=== PATIENT | female | born 1960 | race Caucasian/White ===

== ENCOUNTER → 2017-04-27 | Outpatient (CLI) | payer OTHER ==
[2016-07-20 10:38] VITALS: BP 103/61
--- NOTE | 2017-04-27 16:33 | MRI ---
MRI left elbow without contrast Indication: Left elbow pain and swelling Technique: Multiplanar, multi sequence imaging of the left elbow without IV contrast administration. Findings: The capitellum demonstrates bone marrow edema within the posterior lateral articular surfac e with suspected small osteochondral body noted adjacent to the capitellum on image 9, series 901. On the axial sequences there is erosion versus posttraumatic deformity within the capitellum. Small silvio unt of fluid is no within the elbow joint. There is very mild edema within the adjacent anconeus musc le. Median nerve is normal in signal and position. The radial head demonstrates no marrow signal abnormality or malpositioning. The adjacent lateral uln ar collateral ligament is intact. The annular ligament appears intact. The common extensor tendon dem onstrates no abnormal signal. The ulnar collateral ligament and common flexor tendons are normal. The biceps, brachialis and triceps muscles and tendons are normal. Impression: 1.Moderate cortical irregularity with subchondral marrow edema within the posterolateral capitellum w ith questionable small ossific densities noted adjacent to the capitellum suggests sequela of remote injury with secondary osteoarthrosis. However given the reported history of recent soft tissue swelli ng and warmth along with the cortical irregularity of the capitellum clinical correlation for gout ar thropathy is recommended. 2. Low-grade strain of the anconeus muscle. Reported By:
== END | disposition home or self-care (01) ==
LOC: RAD 09:52
PROVIDERS: ATTEND Internal Medicine
DX: M25.522 Pain in left elbow (principal); S56.812A Strain of other muscles, fascia and tendons at forearm level, left arm, initial encounter; X58.XXXA Exposure to other specified factors, initial encounter; R60.0 Localized edema
CPT/HCPCS: 73221

== ENCOUNTER 2017-10-26 19:53 | Emergency (ER) | payer OTHER ==
[2017-10-26 20:02] VITALS: BMI 24.7
--- NOTE | 2017-10-26 20:24 | DR.GENAD ---
HPI - PCP Primary Care Physician: FABRIZIO - HPI Comment HPI Comment: PREVIOUS EPISODE TREATED IN PCP OFFICE. TONIGHT EPISODE MO0RE SEVERE. NO FEVER. LOWER BACK PAIN GOING INTO THE LEGS WITH INTERMITTENT TWICHING OF MUCLES IN LWER EXTREMITY. - Complaint/Symptoms Chief Complaint Doctors Comments: PATIENT IS RESTLESS, HAVING GENERALIZE MUSCLE TWICHING AND CONFUSE. NOTED TONIGHT. Chief Complaint:: " TREATS HER FOR HER SCIATCA, THIS HAS HAPPENED ONLY 3-4 TIMES THE LAST 10 YEARS WHERE SHE HAS THESE SPASMS IN HER LEGS AND SHE GETS REAL DELUSIONAL PER SPOUSE." O/S 1800 Self Treatment fo Chief Complaint: ZANAFLEX 4MG. NEURONTIN 400MG - Nurses notes reviewed Nurses Notes Review: Yes - Source History Provided: Significant Other - Mode of Arrival Mode of Arrival: Wheelchair - Timing Onset of Chief Complaint: 10/26/17 Came on: Suddenly - Duration Duration: Constant Duration: Days - Severity Severity: Moderate PMH - PMH Past Medical History: Yes Past Medical History: GERD, Hypertension, Hypothyroidism, Kidney Stones Past Surgical History: Yes Surgical History: Cholecystectomy, Ectopic , Hysterectomy - Family History History of Family Medical Conditions: Yes Family Medical History: Diabetes Mellitus, Cancer, Coronary Artery Disease, Hypertension - Social History Does patient currently use any type of tobacco product: No Have you used tobacco products in the last 12 months: No Type of Tobacco Use: None Does any household member use tobacco: No Alcohol Use: None Do you use any recreational Drugs:: No Lives With: Spouse Lives Where: Home - infectious screening Have you traveled outside the country in the last 6 months?: No Isolation: Standard ROS - Review of Systems Constitutional: No Symptoms Reported Eyes: No Symptoms Reported ENTM: No Symptoms Reported Respiratoy: No Symptoms Reported Cardiovascular: No Symptoms Reported Gastrointestinal/Abdominal: No Symptoms Reported Genitourinary: No Symptoms Reported Neurological: Numbness (LOWER EXTREMITIES ), Other (MUSCLE TWICHING LOWER EXTREMITY.) Musculoskeletal: Back Pain, Back, Leg Integumentary: No Symptoms Reported Hematologic/Lymphatic: No Symptoms Reported Endocrine: No Symptoms Reported All Other Systems: Reviewed and Negative PE - Vital Signs Vitals: Temperature 99.3 F Pulse Rate [Right Brachial] 95 Pulse Rate 105 Respiratory Rate 16 Blood Pressure [Left Arm] 103/61 Blood Pressure [Right Arm] 119/77 Blood Pressure 127/62 O2 Sat by Pulse Oximetry 99 - General Limitations: No Limitations General Appearance: Alert - Head Head Exam: Normal Inspection - Eyes Eye exam: Normal Appearance - ENT ENT Exam: Normal External Ear Exam External Ear Exam: Normal External Inspection TM/Canal Exam: Bilateral Normal Nose Exam: Normal Nose Exam Mouth Exam: Normal Inspection Throat Exam: Normal Inspection - Neck Neck Exam: Trachea Midline. negative: Tenderness, Meningismus, Lymphadenopathy - Chest Chest Inspection: Symmetric Chest Wall Rise - Respiratory Respiratory Exam: Normal Lung Sounds Bilat Respiratory Exam: Bilateral Clear to Auscultation - Cardiovascular Cardiovascular Exam: Regular Rate, Normal Rhythm, Normal Heart Sounds - Abdominal Exam Abdominal Exam: Normal Bowel Sounds, Soft. negative: Tenderness - Extremities Extremities Exam: Normal Inspection - Back Back Exam: Muscle Spasm (LOWER BACK.), Paraspinal Tenderness (LOWER BACK) - Neurologic Neurological Exam: Alert, Other (SLIGHTLY CONFUSE.) - Psychiatric Psychiatric Exam: Anxious - Skin Skin Exam: Normal Color MDM - Additional Information Additional Information Obtained From: Family - Differential Diagnosis Differential Diagnosis: LOW BACK SPASM, COMPRESSION FRACTURE L SPINE, UTI, KIDNEY STONE Course - Treatment Treatment: SEE ORDERS. MEDS FOR PAIN AND MUSCLE RELAXATION GIVEN SLOW RESPONSE TO MEDS. - Education/Counseling Education/Counseling: Patient, Family, Education Educated On: Treatment, Diagnosis, Needs for Follow Up ROR - Labs Reviewed Laboratory Results Reviewed?: Yes Result Diagrams: 10/26/17 21:51 10/26/17 21:51 Laboratory: WBC 6.7 X10^3/uL (3.6-10.0) 10/26/17 21:51 RBC 4.49 X10^6/uL (3.5-5.4) 10/26/17 21:51 Hgb 13.0 g/dL (12.0-16.0) 10/26/17 21:51 Hct 37.2 % (36.0-47.0) 10/26/17 21:51 MCV 82.9 fL (80.0-100.0) 10/26/17 21:51 MCH 29.0 pg (27.0-34.0) 10/26/17 21:51 MCHC 35.0 g/dL (33.0-35.0) 10/26/17 21:51 RDW 13.7 % (11.6-16.5) 10/26/17 21:51 Plt Count 274 X10^3/uL (150.0-450.0) 10/26/17 21:51 MPV 7.6 fL (7.4-11.0) 10/26/17 21:51 Neut % (Auto) 55.3 % (42.0-75.0) 10/26/17 21:51 Lymph % (Auto) 38.7 % (21.0-51.0) 10/26/17 21:51 [place] % (Auto) 5.5 % (0.0-13.0) 10/26/17 21:51 Eos % (Auto) 0.1 % (0.9-2.9) L 10/26/17 21:51 Baso % (Auto) 0.4 % (0.2-1.0) 10/26/17 21:51 Neut # (Auto) 3.7 x10^3/uL (2.2-4.8) 10/26/17 21:51 Lymph # (Auto) 2.6 X10^3/uL (1.3-2.9) 10/26/17 21:51 [place] # (Auto) 0.4 x10^3/uL (0.3-0.8) 10/26/17 21:51 Eos # (Auto) 0.0 x10^3/uL (0.0-0.2) 10/26/17 21:51 Baso # (Auto) 0.0 X10^3/uL (0.0-0.1) 10/26/17 21:51 Absolute Nucleated RBC 0.1 /100WBC 10/26/17 21:51 Sodium 141 mmol/L (136-145) 10/26/17 21:51 Corrected Sodium TNP 10/26/17 21:51 Potassium 3.5 mmol/L (3.5-5.1) 10/26/17 21:51 Chloride 103 mmol/L (98-107) 10/26/17 21:51 Carbon Dioxide 30.3 mmol/L (21-32) 10/26/17 21:51 BUN 9 mg/dL (7-18) 10/26/17 21:51 Creatinine 0.75 mg/dL (0.55-1.02) 10/26/17 21:51 Est GFR (MDRD) Af Amer > 60 (>60) 10/26/17 21:51 Est GFR (MDRD) Non-Af > 60 (>60) 10/26/17 21:51 Glucose 95 mg/dL (65-99) 10/26/17 21:51 Calcium 8.4 mg/dL (8.5-10.1) L 10/26/17 21:51 Corrected Calcium TNP 10/26/17 21:51 Magnesium 2.0 mg/dL (1.7-2.9) 10/26/17 21:51 Total Bilirubin 0.30 mg/dL (0.2-1.0) 10/26/17 21:51 AST 27 Units/L (15-37) 10/26/17 21:51 ALT 42 Units/L (12-78) 10/26/17 21:51 Alkaline Phosphatase 121 Units/L (46-116) H 10/26/17 21:51 Total Protein 7.4 g/dL (6.4-8.2) 10/26/17 21:51 Albumin 4.1 g/dL (3.4-5.0) 10/26/17 21:51 Globulin 3.3 g/dL (2.5-4.5) 10/26/17 21:51 Albumin/Globulin Ratio 1.2 Ratio (1.1-2.1) 10/26/17 21:51 - XRAY XRAY Interpreted by: Radiologist XRAY Findings: REPORT DISCUSS WITH PATIENT AND HER . - Diagnosis Discharge Problem: Muscle twitching, Restless, Muscle spasm, Sciatica Back pain Qualifiers: Back pain location: low back pain Chronicity: acute Back pain laterality: bilateral Sciatica presence: with sciatica Sciatica laterality: bilateral sciatica Qualified Code(s): M54.42 - Lumbago with sciatica, left side - Discharge Plan Disposition: HOME, SELF-CARE Condition: Stable - Follow ups/Referrals Follow ups/Referrals: NFD,None [Primary Care Provider] - 10/27/17 - Instructions Instructions: Muscle Cramps and Spasms, Sciatica, [id number], Musculoskeletal Pain, Back Pain, Adult, [id number] Additional Instructions: RETURN TO ED IF WORSE.
[2017-10-26] MEDS ORDERED: MORPHINE SULFATE INJ 4 MG IM ONE (20:25)
[2017-10-26] MEDS ORDERED: PHENERGAN INJ 25 MG IM ONE (20:25)
[2017-10-26] MEDS ORDERED: ATIVAN INJ 2 MG VIAL IM ONE (20:28)
[2017-10-26] MEDS ORDERED: ATIVAN INJ 2 MG VIAL IVP ONE (20:28)
[2017-10-26] MEDS ORDERED: PHENERGAN INJ 25 MG ONE (20:30)
[2017-10-26] MEDS ORDERED: MORPHINE SULFATE INJ 4 MG ONE (20:31)
[2017-10-26] MEDS ORDERED: ATIVAN INJ 2 MG VIAL ONE (20:31)
[2017-10-26] MEDS ORDERED: TORADOL 60 MG VIAL IM ONE (21:45)
[2017-10-26 21:59] LABS: BASOPHILS % (AUTO) 0.4 % (0.2-1.0); EOSINOPHILS % (AUTO) 0.1 % (0.9-2.9); HEMATOCRIT 37.2 % (36.0-47.0); LYMPHOCYTES # (AUTO) 2.6 X10^3/uL (1.3-2.9); LYMPHOCYTES % (AUTO) 38.7 % (21.0-51.0); MEAN CORPUSCULAR VOLUME 82.9 fL (80.0-100.0); MEAN PLATELET VOLUME 7.6 fL (7.4-11.0); MONOCYTES # (AUTO) 0.4 x10^3/uL (0.3-0.8); MONOCYTES % (AUTO) 5.5 % (0.0-13.0); NEUTROPHILS # (AUTO) 3.7 x10^3/uL (2.2-4.8); NEUTROPHILS % (AUTO) 55.3 % (42.0-75.0); PLATELET COUNT 274 X10^3/uL (150.0-450.0); RED BLOOD COUNT 4.49 X10^6/uL (3.5-5.4); RED CELL DISTRIBUTION WIDTH 13.7 % (11.6-16.5); WHITE BLOOD COUNT 6.7 X10^3/uL (3.6-10.0)
[2017-10-26] MEDS ORDERED: TORADOL 60 MG VIAL ONE (22:10)
[2017-10-26 22:15] LABS: ALANINE AMINOTRANSFERASE 42 Units/L (12-78); ALBUMIN 4.1 g/dL (3.4-5.0); ALKALINE PHOSPHATASE 121 Units/L (46-116); ASPARTATE AMINO TRANSFERASE 27 Units/L (15-37); BLOOD UREA NITROGEN 9 mg/dL (7-18); CALCIUM 8.4 mg/dL (8.5-10.1); CARBON DIOXIDE 30.3 mmol/L (21-32); CHLORIDE 103 mmol/L (98-107); CREATININE 0.75 mg/dL (0.55-1.02); SODIUM 141 mmol/L (136-145); TOTAL PROTEIN 7.4 g/dL (6.4-8.2); eGFR BLACK RACES > 60 (>60); eGFR NON BLACK RACES > 60 (>60)
--- NOTE | 2017-10-26 22:20 | CT ---
HISTORY: Spasms Study: CT brain without contrast Comparison: 07/18/2016 Technique: Multiple axial images of the brain were obtained from the skull base to the vertex without administra tion of IV contrast. Dose reduction techniques including Automated Exposure Control (AEC) and adjust ment of mA and kV were utilized. Findings: The brain parenchyma is within normal limits for patient's age. No evidence of acute hemorrhage, mid line shift, mass effect or abnormal extra-axial fluid collection. The ventricular system is symmetri c and nondilated. The soft tissues and osseous structures are unremarkable. The visualized paranasal sinuses are clear. IMPRESSION: 1.No acute intracranial abnormality. Reported By:
--- NOTE | 2017-10-26 22:27 | CT ---
CT lumbar spine without contrast Indication: Sciatica, lower extremity spasms Comparison: None Technique: CT images of the lumbar spine were obtained without contrast. Automatic exposure control w as utilized. Findings: Examination is degraded by motion, limiting evaluation for subtle fracture. There is no charissa tebral body height loss or evidence for acute cortical disruption. There is minimal multilevel discog enic and mild multilevel facet arthropathy, more prominent within the lower lumbar spine. There is no evidence for high-grade neural foraminal or spinal canal narrowing, within CT limitations. The parav ertebral soft tissues are grossly unremarkable. Impression: Motion degraded study without evidence for acute lumbar spine fracture or subluxation. Mild multilevel spondylosis, worst in the lower lumbar spine. Reported By:
[2017-10-26] MEDS ORDERED: DILAUDID INJ IVP ONE (22:54)
[2017-10-26] MEDS ORDERED: DILAUDID INJ IM ONE (23:10)
[2017-10-26] MEDS ORDERED: DILAUDID INJ ONE (23:11)
[2017-10-26 23:19] VITALS: BP 119/77
== END 2017-10-27 00:20 | disposition home or self-care (01) ==
LOC: ER 20:01
DX: R25.3 Fasciculation (principal); R45.1 Restlessness and agitation; M62.838 Other muscle spasm; M54.42 Lumbago with sciatica, left side; R41.82 Altered mental status, unspecified
CPT/HCPCS: 36415; 70450; 72131; 80053; 83735; 85025; 96372; 99283; 99284; J1170; J1885; J2060; J2270; J2550